=== PATIENT | male | born 1955 | race Caucasian/White ===

== ENCOUNTER 2017-06-08 13:49 | Emergency (ER) | payer BC ==
[2017-06-08] MEDS ORDERED: Ibuprofen 600 MG Tab PO ONE (13:56)
--- NOTE | 2017-06-08 14:47 | CR ---
Clinical history: 62-year-old male injured in fall (slipped on ice). Interpretation: Abnormal. Acute trimalleolar fractures right ankle with additional spiral fracture distal diaphysis of the righ t fibula. Bimalleolar soft tissue swelling, ankle joint effusion and disruption of the tibiotalar thoracentesis joint right ankle. Small heel spurs.
--- NOTE | 2017-06-08 14:52 | EDM.PDOC ---
ED HPI GENERAL MEDICAL PROBLEM - General Chief Complaint: Lower Extremity Injury/Pain Stated Complaint: RT ANKLE Time Seen by Provider: 06/08/17 14:00 Source of Information: Reports: Patient, RN, RN Notes Reviewed History Limitations: Reports: No Limitations - History of Present Illness INITIAL COMMENTS - FREE TEXT/NARRATIVE: Pt presents to the ER with c/o right ankle/low leg pain. He states he was leaving a when he stepped out on the ice and slipped, twisted his leg and fell. He states he heard a "crack/pop". He rates the pain 8/10. Onset: Today, Sudden Right Ankle Pain Score (Numeric/FACES): 8 - Related Data Allergies Allergy/AdvReac Type Severity Reaction Status Date / Time seas Allergy Sneezing Uncoded 06/08/17 14:10 Home Meds: Home Meds Pramipexole [Mirapex] 1 mg PO DAILY 06/08/17 [History] buPROPion HCl [Wellbutrin Sr] 200 mg PO DAILY 06/08/17 [History] lamoTRIgine 25 mg PO DAILY 06/08/17 [History] Past Medical History HEENT History: Reports: Impaired Vision Other HEENT History: wears glasses Cardiovascular History: Reports: None Respiratory History: Reports: None Gastrointestinal History: Reports: None Genitourinary History: Reports: None Musculoskeletal History: Reports: None Neurological History: Reports: None Psychiatric History: Reports: None Endocrine/Metabolic History: Reports: None Hematologic History: Reports: None Immunologic History: Reports: None Oncologic (Cancer) History: Reports: None Dermatologic History: Reports: None - Infectious Disease History Infectious Disease History: Reports: Chicken Pox, Measles, Mumps - Past Surgical History Head Surgeries/Procedures: Reports: None Social & Family History - Tobacco Use Smoking Status *Q: Never Smoker Second Hand Smoke Exposure: No - Caffeine Use Caffeine Use: Reports: Coffee, Soda - Recreational Drug Use Recreational Drug Use: No Review of Systems - Review of Systems Review Of Systems: ROS reveals no pertinent complaints other than HPI. ED EXAM, GENERAL - Physical Exam Exam: See Below Exam Limited By: No Limitations General Appearance: Alert, WD/WN, No Apparent Distress Eye Exam: Bilateral Eye: Normal Inspection Ears: Normal External Exam, Hearing Grossly Normal Nose: Normal Inspection Throat/Mouth: Normal Inspection, Normal Oropharynx, Normal Voice, No Airway Compromise Head: Atraumatic, Normocephalic Neck: Normal Inspection, Supple, Non-Tender, Full Range of Motion Respiratory/Chest: No Respiratory Distress, Lungs Clear, Normal Breath Sounds, No Accessory Muscle Use, Chest Non-Tender Cardiovascular: Normal Peripheral Pulses, Regular Rate, Rhythm, No Edema, No Gallop, No JVD, No Murmur, No Rub Peripheral Pulses: 2+: Radial (L), Radial (R) GI/Abdominal: Normal Bowel Sounds, Soft, Non-Tender, No Distention (Male) Exam: Deferred Rectal (Males) Exam: Deferred Back Exam: Normal Inspection, Full Range of Motion Extremities: No Pedal Edema, Normal Capillary Refill, Joint Swelling (right ankle), Leg Pain (Right distal tib/fib), Other (edematous and ecchymotic) Neurological: Alert, Oriented, Normal Cognition, No Motor/Sensory Deficits Psychiatric: Normal Affect, Normal Mood Skin Exam: Warm, Dry, Intact, Normal Color, No Rash Lymphatic: No Adenopathy Course - Vital Signs Last Recorded V/S: Last Vital Signs Temp 97.6 F 06/08/17 14:02 Pulse 115 H 06/08/17 14:02 Resp 16 06/08/17 14:02 BP 189/99 H 06/08/17 14:18 Pulse Ox 100 06/08/17 14:02 - Orders/Labs/Meds Labs: Laboratory Tests 06/08/17 06/08/17 Range/Units 15:02 15:02 WBC 7.1 (5.0-10.0) 10^3/uL RBC 4.44 L (4.6-6.2) 10^6/uL Hgb 14.7 (14.0-18.0) g/dL Hct 43.1 (40.0-54.0) % MCV 97.1 (80-100) fL MCH 33.1 (27.0-34.0) pg MCHC 34.1 (33.0-35.0) g/dL Plt Count 199 (150-450) 10^3/uL Neut % (Auto) 62.3 (42.2-75.2) % Lymph % (Auto) 23.3 (20.5-50.1) % [place] % (Auto) 10.5 H (2-8) % Eos % (Auto) 3.5 H (1.0-3.0) % Baso % (Auto) 0.4 (0.0-1.0) % Sodium 137 (135-145) mmol/L Potassium 3.9 (3.6-5.0) mmol/L Chloride 103 (101-111) mmol/L Carbon Dioxide 21.0 (21.0-31.0) mmol/L Anion Gap 16.9 BUN 17 (7-18) mg/dL Creatinine 1.1 (0.6-1.3) mg/dL Est Cr Clr Drug Dosing 66.77 mL/min Estimated GFR (MDRD) > 60 BUN/Creatinine Ratio 15.45 Glucose 127 H (74-105) mg/dL Calcium 9.2 (8.4-10.2) mg/dl Total Bilirubin 0.6 (0.2-1.0) mg/dL AST 37 (10-42) IU/L ALT 33 (10-60) IU/L Alkaline Phosphatase 66 (42-121) IU/L Total Protein 7.1 (6.7-8.2) g/dl Albumin 4.1 (3.2-5.5) g/dl Globulin 3.0 Albumin/Globulin Ratio 1.37 Meds: Medications Discontinued Medications Generic Name Dose Route Start Last Admin Trade Name Freq PRN Reason Stop Dose Admin Ibuprofen 600 mg 06/08/17 13:56 06/08/17 14:05 Motrin PO 06/08/17 13:57 600 mg ONETIME ONE Administration Departure - Departure Time of Disposition: 15:56 Disposition: DC/Tfer to Acute Hospital 02 Condition: Fair Clinical Impression: Fracture of fibula, Closed fracture of ankle - Discharge Information Referrals: PCP,Not In Area [Primary Care Provider] - Forms: ED Department Discharge, Interfacility Transfer VERONICA
[2017-06-08 15:27] LABS: CHLORIDE,CL 103 mmol/L (101-111)
[2017-06-08 15:29] LABS: SODIUM,NA 137 mmol/L (135-145)
[2017-06-08] MEDS ORDERED: HYDROmorphone 1 MG/ML Syringe IVPUSH ONE (15:57)
[2017-06-08] MEDS: Sodium Chloride 0.9% 10 ML Syringe FLUSH PRN ×2 (15:59→16:01)
== END 2017-06-08 16:46 ==
LOC: DL.ED 13:49
DX: S82.851A Displaced trimalleolar fracture of right lower leg, initial encounter for closed fracture (principal); Z79.899 Other long term (current) drug therapy; W00.9XXA Unspecified fall due to ice and snow, initial encounter
CPT/HCPCS: 36415; 73610; 80053; 85025; 96374; 99285; A9270; J1170; J7050